=== PATIENT | female | born 1975 | race Two or more races ===

== ENCOUNTER 2023-03-27 09:00 | Outpatient (CLI) | payer BC, OTHER | END 2023-03-27 09:01 | disposition home or self-care (01) | LOC: CSHMAMMO 09:00 | PROVIDERS: ATTEND Obstetrics & Gynecology | DX: N63.22 Unspecified lump in the left breast, upper inner quadrant (principal) | CPT/HCPCS: 77066; G0279 ==

== ENCOUNTER 2024-04-20 09:10 | Outpatient (CLI) | payer BC | END 2024-04-20 09:11 | disposition home or self-care (01) | LOC: CSHMAMMO 09:10 | PROVIDERS: ATTEND Obstetrics & Gynecology | DX: Z12.31 Encounter for screening mammogram for malignant neoplasm of breast (principal) | CPT/HCPCS: 77063; 77067 ==